=== PATIENT | male | born 1965 | race Caucasian/White ===

== ENCOUNTER 2025-04-04 10:16 | Day surgery (SDC) | payer MEDICARE, BC ==
[~2025-04-04] VITALS: Ht 172.7 cm; Wt 117.9 kg
[2025-04-04] MEDS ORDERED: PIOG15TA8 PO (10:37)
[2025-04-04] MEDS ORDERED: SITA50TA PO (10:37)
[2025-04-04] MEDS ORDERED: ATOR10TA PO (10:37)
[2025-04-04] MEDS ORDERED: ASPI-1169 PO (10:37)
[2025-04-04] MEDS ORDERED: VALS320T2 PO (10:37)
[2025-04-04] MEDS ORDERED: CHOL100062 PO (10:37)
[2025-04-04] MEDS ORDERED: GABA-532 PO (10:39)
[2025-04-04] MEDS ORDERED: XPHOZAH PO (10:39)
[2025-04-04] MEDS ORDERED: B,C/1TAB PO (10:39)
[2025-04-04] MEDS ORDERED: SEVE800T8 PO (10:39)
[2025-04-04] MEDS ORDERED: CALC667T2 PO (10:39)
[2025-04-04 11:00] VITALS: BP 156/89; TEMP 97.8; O2SAT 93
[2025-04-04] MEDS ORDERED: ROPIVACAINE HCL 0.5% 5 MG/ML 30ML VIAL ONE (11:25)
[2025-04-04] MEDS ORDERED: CELLULOSE,OXIDIZED 1 EA PACK MC ONE (11:25)
[2025-04-04] MEDS ORDERED: LIDOCAINE HCL/MPF 1% 30 ML VIAL IJ ONE ×2 (11:25→13:20)
[2025-04-04] MEDS ORDERED: HEMOSTATIC MATRIX 8 ML 1 EACH PAD MC ONE (11:25)
[2025-04-04] MEDS ORDERED: CELLULOSE,OXIDIZED 1 PKT EACH MC ONE (11:26)
[2025-04-04] MEDS ORDERED: CELLULOSE,OXIDIZED 1 EACH EACH MC ONE (11:26)
[2025-04-04 11:45] LABS: INR 1.08 (0.91-1.10)
[2025-04-04] MEDS ORDERED: FENTANYL PF 100MCG/2ML AMPUL ONE (12:35)
[2025-04-04] MEDS ORDERED: MIDAZOLAM HCL 2 MG/2ML VIAL ONE (12:36)
[2025-04-04 18:00] VITALS: BP 150/74; TEMP 97.2; O2SAT 95
== END 2025-04-04 23:00 | disposition home or self-care (01) ==
LOC: DS 10:16 → MED 10:18 → UNDOADMIN 10:18 → UNDODISIN 18:30 → DS 23:00
PROVIDERS: ATTEND Surgery Vascular Surgery
DX: T82.510D Breakdown (mechanical) of surgically created arteriovenous fistula, subsequent encounter (principal); N18.6 End stage renal disease; I12.0 Hypertensive chronic kidney disease with stage 5 chronic kidney disease or end stage renal disease; E11.22 Type 2 diabetes mellitus with diabetic chronic kidney disease; Y83.2 Surgical operation with anastomosis, bypass or graft as the cause of abnormal reaction of the patient, or of later complication, without mention of misadventure at the time of the procedure; Z79.84 Long term (current) use of oral hypoglycemic drugs; Z79.82 Long term (current) use of aspirin; Z79.899 Other long term (current) drug therapy; Z98.890 Other specified postprocedural states
CPT/HCPCS: 36415; 36832; 82962; 84132; 85610; 85730; 86850; 88304; J0690; J1644; J2250; J2704; J2795; J3010; J3490; J7040; G0378